=== PATIENT | male | born 1985 | race Caucasian/White ===

== ENCOUNTER 2016-11-21 17:10 | Inpatient (IN) | payer OTHER ==
[~2016-11-21] VITALS: Ht 172.7 cm; Wt 68.6 kg
--- NOTE | ~2016-11-21 | CO ---
ADMIT: 11/21/2016 RM/LOC: 530 [facility] MR#: [id number] [address] [address] ARSEN PETERSON [address] [place] [address] Consultation SEX: M AGE: 31 : 1985 DATE OF CONSULTATION: 11/22/2016 ATTENDING PHYSICIAN: Alexander Dougherty CONSULTING PHYSICIAN: Gage Mcmullen MD ADDENDUM: REASON FOR CONSULTATION: Anemia and hematemesis. HISTORY OF PRESENT ILLNESS: This patient is a 31-year-old male with a history of polysubstance and alcohol abuse who evidently had some hematemesis and some dark stools. He had a hemoglobin in like 7.3 range. We have been asked to see him for an EGD. He denies to me ever having any problems with this before. He has a history of depression. Denies any significant surgery. He denies taking significant aspirin, ibuprofen, or things of that nature. He does drink whiskey and alcohol daily and has been hitting it pretty hard lately, he said. He also has a history in the past of methamphetamines and marijuana. When I see him, he is in no acute distress. He is alert, hard time talking. He had a laceration on his tongue from whatever reason he cannot tell me why. He does not remember much about the binge he was on. This has been seen and evaluated by Dr. Monzon and should heal on its own, but it is swollen. His abdomen is soft. No real tenderness of significance. No mass or organomegaly. ASSESSMENT AND PLAN: EGD tomorrow by myself or one of my partners, depending on who can get to it first. This has been discussed with him. Gage Mcmullen MD/ netta JOB #: [id number] CC: Alexander Dougherty, Attending Physician Alexander Dougherty, Family Physician
--- NOTE | 2016-11-23 09:22 | ER ---
ADMIT: 11/21/2016 RM/LOC: 530 [facility] MR#: [id number] [address] [address] ARSEN PETERSON [address] [place] [address] Emergency Room Report SEX: M AGE: 31 : 1985 DATE: 11/21/2016 ADDENDUM: CHIEF COMPLAINT: Tongue swelling. HISTORY OF PRESENT ILLNESS: This is a 31-year-old alcoholic that cannot remember the last 2 or 3 days. He comes in with significant swelling to his tongue. When I examined it, it has a laceration that he said is possibly 2 to 3 days' old, also has bite coronel on the lateral sides of his tongue. It is unclear if this patient had a seizure or an injury that caused the damage to his tongue. COURSE IN THE EMERGENCY ROOM: A CT of his head was done, is negative, over- read by radiologist. EKG showed sinus tachycardia at a rate of 109. CBC was normal except for white count of 18.1, hemoglobin 8.3, and platelets of 205. Urine showed 4+ ketones, 3+ blood. Urine was positive for amphetamines and cannabinoids. CMP showed a sodium of 134. Potassium and chloride are normal. Bicarb of 16, BUN is 26, creatinine is 0.9, AST is 913, ALT is 220. His CK is 8051. His EtOH is 13. His prolactin is 6. I did speak with Dr. Dougherty regarding this patient for [facility]. He is going to admit for hydration and for alcohol detox. I also spoke with Dr. Monzon at 2000 hours, and he will consult on the patient. CLINICAL IMPRESSION: 1. Alcoholism. 2. Dehydration. 3. Methamphetamine and cannabinoid usage. 4. Tongue laceration. DISPOSITION: He is stable at admit. TYSON Davis / Jsoh Rivers MD / modjosep JOB #: [id number] CC: Alexander Dougherty MD, Attending Physician Alexander Dougherty MD, Family Physician
[2016-11-25] MEDS ORDERED: K-PHOS ORIGINA500 MG PO (09:32)
[2016-11-25] MEDS ORDERED: DIFLUCAN DPS200 MG PO (09:32)
[2016-11-25] MEDS ORDERED: PERIDEX15 ML PO (09:32)
[2016-11-25] MEDS ORDERED: POLYTRIM EYE DR10 ML OU (09:33)
[2016-11-25] MEDS ORDERED: ASCORBIC ACID500 MG PO (09:33)
[2016-11-25] MEDS ORDERED: KLOR-CON M2020 ME1 PO (09:33)
[2016-11-25] MEDS ORDERED: PRILOSEC DPS20 MG PO (09:33)
[2016-11-25] MEDS ORDERED: VITAMIN B1100 MG PO (09:33)
[2016-11-25] MEDS ORDERED: FEOSOL-DPS325 MG PO (09:33)
[2016-11-25] MEDS ORDERED: FOLVITE-DPS1 MG PO (09:34)
--- NOTE | 2016-11-26 12:56 | HP ---
ADMIT: 11/21/2016 RM/LOC: 530 [facility] MR#: [id number] [address] [address] ARSEN PETERSON [address] [place] [address] History and Physical SEX: M AGE: 31 : 1985 DATE OF SERVICE: 11/22/2016 CHIEF COMPLAINT: Swollen tongue, inability to swallow. HISTORY OF PRESENT ILLNESS: Arsen is a 31-year-old white male with a past medical history remarkable for heavy alcohol use and dependence as well as marijuana abuse, who presented to the [facility] Emergency Department last evening with a markedly swollen tongue and inability to swallow even liquids as a result. There, he was found to have a fairly significant laceration on his tongue and his speech was still slurred as a result of his tongue size, that it was difficult to really obtain any significant history. He is seen this morning. Since being admitted in the overnight period, his tongue remains very swollen and he is really unable to communicate with me due to the size of his tongue. He has been resistant to taking anything in orally, even liquids. He is really unable to provide much in the way of history. He does write a few words on a sheet of paper. He does note that he almost bit his tongue and half though he is not sure why. He has had a little bit of a cough. He says his teeth have been falling out. He has had some vomiting and nausea in the overnight period, but again, it is very difficult to obtain much in the way of a history on him today. PAST MEDICAL HISTORY: Again, most of this is obtained from old records, it is remarkable for: 1. Alcohol abuse and dependence. 2. History of alcoholic gastritis. 3. History of depression. 4. History of tobacco abuse. 5. Noncompliance. PAST SURGICAL HISTORY: None. ALLERGIES: NO KNOWN MEDICAL ALLERGIES. MEDICATIONS: None. SOCIAL HISTORY: Again, obtained primarily from old records. He does have a history of smoking. He admits to marijuana use. His urine drug screen on admission was positive for amphetamines, but he denies this. He admits to drinking 6-8 alcoholic beverages per day. He admits that his last alcoholic beverage was about four days ago. He states that he has been having seizures at home. FAMILY HISTORY: Noncontributory. REVIEW OF SYSTEMS: Again, a full review of systems was unable to be obtained due to the patient's inability to communicate with us today. What review of systems can be obtained is as per HPI. PHYSICAL EXAMINATION: VITAL SIGNS: Blood pressure is 143/87, pulse 104, ADMIT: 11/21/2016 RM/LOC: 530 [facility] MR#: [id number] [address] [address] KRISTEN ARSEN [address] [place] [address] History and Physical SEX: M AGE: 31 : 1985 respirations 18, temp 98.4, O2 saturation is 100% on room air. GENERAL: He is sitting upright in the bedside chair. Not in acute distress, but really unable to communicate. He really does not even try to vocalize. His tongue is markedly swollen, which is really what is limiting his communication. He does have very malodorous breath. HEENT: Normocephalic, atraumatic. Tongue is 3 to 4+ swollen. He does have what appears to be a transverse laceration midway back on the tongue from what I can see, but he is very hesitant to even bring the tongue out of his mouth. Dentition appear to be in poor repair. NECK: Supple. No lymphadenopathy. HEART: Regular rate and rhythm. No murmurs, gallops, or rubs. LUNGS: Coarse breath sounds throughout bilaterally. LABORATORY AND X-RAY DATA: UA on admission remarkable for 3+ blood on the dip, minimal blood if any on the micro, negative for nitrites and leukocyte esterase but he is 4+ positive for ketones. Urine drug screen was positive for amphetamines and for cannabinoids. CMP through the ER showed a mildly depressed sodium of 143, a bicarb of 16. AST was 913, ALT 220. CK was 8051. Blood alcohol level was 13. Prolactin was 6. Head CT was read out as normal, and no evidence of any sinusitis on the head CT. White count was 18.1, hemoglobin 8.3, platelets of 205, he had 28% bands. INR was 1. Repeat CBC this morning shows his hemoglobin down at 7.3, white count of 12.1, and a platelet of 206. His anemia is a microcytic hypochromic anemia. BMP this morning shows a potassium of 3.1, his CO2 has improved to 19 with hydration. Phos is depressed at 1.3. Mag is normal at 2.3. CK, AST, ALT, alkaline phosphatase are all pending at this time. EKG done through the ER shows sinus tachycardia. No hyperacute ST or T-wave changes noted. ASSESSMENT AND PLAN: 1. Tongue laceration and swelling, resulting in inability to take in orals. 2. Dehydration. 3. ETOH dependence and abuse. 4. Marijuana abuse. 5. Rhabdomyolysis. 6. Microcytic hypochromic anemia. 7. Hypokalemia. 8. Hypophosphatemia. PLAN: Plan since admission has been to hydrate Arsen. He has been receiving normal saline at 120 mL an hour. We started him on IV thiamine and folic ADMIT: 11/21/2016 RM/LOC: 530 [facility] MR#: [id number] [address] [address] ARSEN PETERSON S [address] [place] [address] History and Physical SEX: M AGE: 31 : 1985 acid, and have started him on an alcohol withdrawal protocol with Valium for that. I suspect that he does have alcoholic gastritis and/or peptic ulcer disease, he may need an upper GI endoscopy. I have ordered iron studies including a ferritin, TIBC, and serum iron to confirm my suspicions. We will replace his potassium and his phosphate as best we can here this morning. Repeat a CK and a set of liver enzymes this morning to make sure those are trending down. With his cough and coarse breath sounds, we will get a chest x- ray this morning to ensure he does not have a pneumonia that has been missed. I have started him on IV Protonix and Carafate. We will start him on Zofran for nausea. With his anemia, we will type cross and hold 2 units packed red cells. I have asked Dr. Monzon with Ear, Nose, and Throat consult on the tongue laceration. Alexander Dougherty MD/ netta JOB #: [id number] CC: Alexander Dougherty, Attending Physician Alexander Dougherty, Family Physician
--- NOTE | 2016-11-26 12:56 | DS ---
ADMIT: 11/21/2016 RM/LOC: 530 [facility] MR#: [id number] [address] [address] ARSEN PETERSON [address] [place] [address] Discharge Summary SEX: M AGE: 31 : 1985 ADMISSION DATE: 11/21/2016 DISCHARGE DATE: 11/24/2016 ADMITTING DIAGNOSES: 1. Tongue laceration and swelling with inability to take in orals. 2. Dehydration. 3. Ethanol dependence and abuse. 4. Marijuana abuse. 5. Rhabdomyolysis. 6. Microcytic hypochromic anemia. 7. Hypokalemia. 8. Hypophosphatemia. DISCHARGE DIAGNOSES: 1. Traumatic tongue laceration and poor oral cares secondary to chronic alcohol abuse and dependence as well as oral trauma. 2. Dehydration, resolved. 3. Ethanol dependence and abuse. 4. Alcoholic cirrhosis. 5. Polysubstance abuse including cannabis abuse and positive drug screen for amphetamines, though patient denies the latter. 6. Rhabdomyolysis CKs (creatine kinases) trending down. 7. Hypokalemia, nutritional deficiency from his chronic alcohol abuse. 8. Hypophosphatemia. Again, nutritional deficiency from his chronic alcohol abuse. 9. Candidal esophagitis. 10.Iron deficiency anemia, likely secondary to his tongue trauma. 11.Bilateral conjunctivitis. 12.Tobacco abuse. CONSULTATIONS: 1. Carlos Monzon MD with ENT consulted on 11/21/2016 for his tongue laceration. 2. Gage Mcmullen MD with General Surgery consulted on 11/22/2016 for microcytic hypochromic anemia. PROCEDURES: Upper gastrointestinal endoscopy with Nasir Nuñez MD, General Surgery performed on 11/23/2016 showing findings consistent with candidal esophagitis but no evidence of esophageal varices, peptic ulcer disease or any evidence a gastritis. HISTORY AND PHYSICAL EXAM: Arsen is a 31-year-old, white with a past medical history remarkable for heavy alcohol use and dependence as well as marijuana abuse who presented to [facility] Emergency Department in the evening of 11/21/2016 with a markedly swollen tongue, tongue laceration and inability to swallow even liquids as a result of this laceration. Due to his tongue size, it was difficult to obtain any history from him at the time of my initial visit. He was found to be dehydrated, had elevated liver enzymes and elevated CK. He was unable to provide any significant history as ADMIT: 11/21/2016 RM/LOC: 530 [facility] MR#: [id number] [address] [address] ARSEN PETERSON [address] [place] [address] Discharge Summary SEX: M AGE: 31 : 1985 to how his tongue came to be in this condition. He did report that his teeth were falling out and he had been having poor oral cares. His vital signs were stable. He was afebrile, though he was found to have a microcytic hypochromic anemia with a hemoglobin of 8.3. Urine drug screen was positive for cannabinoids and amphetamines, though he denied using amphetamines. He was also found to have a hypokalemia with a potassium of 3.12. He was admitted to the hospital for IV hydration, evaluation of his tongue laceration, correction of his electrolytes, and his anemia. HOSPITAL COURSE: Arsen's hospital course was overall unremarkable. There were no significant events throughout his entire hospital stay. He was transfused 1 unit of packed red cells when his hemoglobin came down into the 6 range. He had no active bleeding, and I suspect this was probably dilutional to giving him quite a bit of IV fluid as a result of this rhabdomyolysis. Again, he did receive 1 unit of packed red cells and his hemoglobin responded nicely up into the high 7s. He otherwise remained asymptomatic from his anemia. Dr. Monzon with ENT was consulted for his tongue laceration. Surgical repair was not recommended. Good oral cares and Peridex mouthwash were recommended and were initiated here in the hospital. Arsen did have fevers on 11/22/2016 and into 11/23/2016. Further evaluation of this included a negative lactic acid, procalcitonin, chest x-ray and urinalysis. I think this was probably secondary to atelectasis. His lung sounds were rather course at the time. We managed this with DuoNebs and incentive spirometry and his fevers resolved. Arsen was found to have low potassium and low phosphate throughout his hospital stay. These were replaced orally and intravenously and were thought secondary to his chronic alcohol abuse and just simply nutritionally deficient, again from his chronic alcohol abuse and dependence. He was started on thiamine and folic acid as well as a multivitamin on admission, and these were carried out through his day of discharge. Dr. Mcmullen with General Surgery was consulted for his microcytic hypochromic anemia. Iron studies were suggestive of iron deficiency and blood loss. Upper GI endoscopy was performed by Dr. Mcmullen's partner, Dr. Nuñez, on 11/23/2016 with findings consistent of his candidal esophagitis. No evidence of bleed, peptic ulcer disease, gastritis or esophageal varices. He was started on fluconazole. His iron deficiency anemia was thought to be secondary to nutritional deficiencies as well as his tongue laceration. No further GI workup was obtained at the time of his discharge. Arsen did have rather mucoid discharge from his eyes noted on 11/23/2016, and he was started on Polytrim eye drops for that during his hospital stay. Arsen was evaluated by Social Work, Physical Therapy, Occupational Therapy, and a consultation was obtained by the [facility] here in [place]. He declined any inpatient drug and alcohol treatment stating he did not think he needed it. I made a strong recommendation to Arsen that many, if not all of the findings we encountered during his entire hospital stay were as a result of his chronic alcohol abuse and dependence and advised ADMIT: 11/21/2016 RM/LOC: 530 [facility] MR#: [id number] [address] [address] ARSEN PETERSON S [address] [place] [address] Discharge Summary SEX: M AGE: 31 : 1985 him strongly that he needed to quit drinking and that failure to do so would very likely result in an early . He indicated an understanding. Ultimately by the morning of 11/24/2016 he was able to take in oral pills as well as liquids, maintain his own hydration status. He was actually able to eat and tolerate rather soft and bland diet. It was felt that his remaining nutritional deficiencies could be managed as an outpatient with oral replacement therapy and a decision was made to discharge him to home. Discharge condition is poor. I have strong doubts as to whether Arsen is going to take any of the medicines that I have provided him or quit drinking. DISCHARGE INSTRUCTIONS: Discharge medications will include: 1. Ferrous sulfate 325 mg p.o. daily. 2. Vitamin C 500 mg p.o. daily. 3. Omeprazole 20 mg b.i.d. 4. Peridex mouthwash 15 mL t.i.d. 5. K-Phos Neutral 500 mg b.i.d. 6. Potassium chloride 20 mEq p.o. daily. 7. Thiamine 100 mg p.o. daily. 8. Folic acid 1 mg p.o. daily. 9. Fluconazole 400 mg p.o. today then 200 mg p.o. daily for 14 days. 10.Polytrim eyedrops one drop in each eye for six days. Dr. Monzon with ENT has recommended a followup in 10-14 days. We will confirm with General Surgery their recommendation for followup. I have asked that he follow up with me in clinic early next week for a CMP, mag phos, CBC and CK. Alexander Dougherty MD/ ja JOB #: [id number] CC: Alexander Dougherty MD, Attending Physician Alexander Dougherty MD, Family Physician
--- NOTE | 2016-12-08 12:25 | CO ---
ADMIT: 11/21/2016 RM/LOC: 530 [facility] MR#: [id number] [address] [address] ARSEN PETERSON [address] [place] [address] Consultation SEX: M AGE: 31 : 1985 DATE OF CONSULTATION: 11/22/2016 ATTENDING PHYSICIAN: Alexander Dougherty CONSULTING PHYSICIAN: Gage Mcmullen MD REASON FOR CONSULTATION: Anemia, question upper gastrointestinal blood loss. HISTORY OF PRESENT ILLNESS: Arsen is a 31-year-old male, who arrived to the Emergency Department yesterday for concerns of hematemesis and tongue laceration and swelling. Due to his symptoms, he has a very difficult time swallowing liquids and communicating verbally. Apparently, the patient's which most of the history I obtained from his aunt was that a couple days ago he had about three times hematemesis and a couple times dark stools. While he has been in the hospital, his stools have also been loose, but denies any diarrhea. The patient cannot recall exactly what started these symptoms or what exactly happened to him at this time. He does have a history of alcohol abuse, and polysubstance abuse. He denies any abdominal pain, diarrhea, constipation, bright red blood per rectum, shortness of breath, or weakness. He takes ibuprofen [id number] p.r.n., but he does not recall taking any recently. He denies taking any further blood thinning medications. PAST MEDICAL HISTORY: Significant for depression. PAST SURGICAL HISTORY: No prior surgeries. ALLERGIES: NO KNOWN DRUG ALLERGIES. MEDICATIONS: Occasional ibuprofen. FAMILY HISTORY: Noncontributory. SOCIAL HISTORY: The patient screens positive for alcohol abuse, he drinks whiskey about 6 to 8 drinks per day. He has history of polysubstance abuse including methamphetamines and marijuana. He denies any tobacco use. REVIEW OF SYSTEMS: CONSTITUTIONAL: The patient denies any fever, chills, or night sweats. The rest of a comprehensive 10-point review of systems was performed and all other systems are negative. PHYSICAL EXAMINATION: GENERAL: The patient is in no acute distress. He is alert oriented. HEENT: Head is normocephalic and atraumatic. EOMS are intact. Conjunctivae free of icterus, erythema, or pallor. Pinnae, free of deformities. Nose, midline. Tongue with old laceration about mid tongue and medial. NECK: Supple. No tracheal deviation. SKIN: Negative for jaundice, clubbing, edema, pallor, or cyanosis. LUNGS: Normal respiratory effort. HEART: Distal pulses intact. Regular rate and rhythm. ADMIT: 11/21/2016 RM/LOC: 530 [facility] MR#: [id number] [address] [place] [address] [place] [address] Consultation SEX: M AGE: 31 : 1985 ABDOMEN: Soft, nondistended, some mild tenderness in the left lower quadrant. LABORATORY DATA: Hemoglobin 7.3. ASSESSMENT: 1. Anemia. 2. Hematemesis. 3. Melanotic stools. PLAN: Plan is to have the patient undergo EGD tomorrow performed by Dr. Mcmullen. He has clears today, so we will keep n.p.o. at midnight, and get him get him consented. I discussed the risks, alternatives, benefits, and complications of EGD with the patient to which he is agreement of plan. I had all his questions answered and he would like to proceed. Thanks for the consultation of this patient. TYSON Stanley / Gage Mcmullen MD / netta JOB #: [id number] CC: Alexander Dougherty, Attending Physician Alexander Dougherty, Family Physician
--- NOTE | 2016-12-10 08:53 | OR ---
ADMIT: 11/21/2016 RM/LOC: 530 [facility] MR#: [id number] [address] [address] ARSEN PETERSON [address] [place] [address] Operative/Delivery Room Report SEX: M AGE: 31 : 1985 SURGERY DATE: 11/23/2016 SURGEON: Nasir Nuñez MD PREPROCEDURE DIAGNOSES: 1. Anemia. 2. Hematemesis. POSTPROCEDURE DIAGNOSES: 1. Possible fungal esophagitis. 2. Traumatic tongue injury. 3. No obvious active bleeding source. PROCEDURE: EGD with esophageal biopsies. INDICATIONS: The patient is a 31-year-old with alcohol and drug abuse issues who has had apparently some type of tongue biting injury, evaluated by Dr. Monzon. He had hematemesis, found to be anemic who presents for upper endoscopy evaluation. FINDINGS: The patient was taken to the endoscopy suite. IV sedation was given. He was placed in left lateral decubitus position. A bite-block was placed in the patient's mouth. There was a terribly bad halitosis. We were able to introduce the gastroscope by the 2 obvious large cratered ulcerogenic areas on his tongue reportedly from a bite injury into the oropharynx, into the esophagus, into the stomach, through the pylorus to the duodenum. The duodenal bulb, second and third portion of the duodenum appeared normal. The stomach also appeared normal with no bleeding source. On retroflexion view, there did not appear to be a hiatal hernia. On exam of the GE junction, there was clearly evidence of distal esophagitis, possibly a fungal esophagitis as there appeared to be some white plaquing. I did do several distal esophageal biopsies to rule out fungal esophagitis, but we will start fluconazole empirically. Remainder of the mid and upper esophagus appeared normal. There was no active bleeding. There was no evidence of old or new blood throughout the endoscopy. The gastroscope was removed. The patient tolerated the procedure without difficulty and transferred to the recovery room in good condition. Nasir Nuñez MD/ netta JOB #: [id number] CC: Alexander Dougherty, Attending Physician Alexander Dougherty, Family Physician Alexander Dougherty MD
== END 2016-11-24 13:14 | disposition home or self-care (01) | DRG 158 ==
LOC: ER 17:10 → 5MS 20:10
PROVIDERS: ADMIT Family Medicine
PROC: HZ2ZZZZ Detoxification Services for Substance Abuse Treatment (ICD-10-PCS; principal; 2016-11-22)
PROC: 30233N1 Transfusion of Nonautologous Red Blood Cells into Peripheral Vein, Percutaneous Approach (ICD-10-PCS; 2016-11-23)
PROC: 0DB38ZX Excision of Lower Esophagus, Via Natural or Artificial Opening Endoscopic, Diagnostic (ICD-10-PCS; 2016-11-23)
DX: S01.512A Laceration without foreign body of oral cavity, initial encounter (principal); M62.82 Rhabdomyolysis; K92.0 Hematemesis; R13.10 Dysphagia, unspecified; E83.39 Other disorders of phosphorus metabolism; B37.81 Candidal esophagitis; K92.1 Melena; E86.0 Dehydration; F10.20 Alcohol dependence, uncomplicated; K70.30 Alcoholic cirrhosis of liver without ascites; F12.90 Cannabis use, unspecified, uncomplicated; F15.90 Other stimulant use, unspecified, uncomplicated; E87.6 Hypokalemia; H10.9 Unspecified conjunctivitis; F32.9 Major depressive disorder, single episode, unspecified; D50.9 Iron deficiency anemia, unspecified; X58.XXXA Exposure to other specified factors, initial encounter; R00.0 Tachycardia, unspecified; Y90.0 Blood alcohol level of less than 20 mg/100 ml; F17.200 Nicotine dependence, unspecified, uncomplicated; R50.9 Fever, unspecified

== ENCOUNTER 2016-12-24 17:51 | Emergency (ER) | payer OTHER ==
[~2016-12-24 17:51] MED LIST: ASCORBIC ACID500 MG PO; DIFLUCAN DPS200 MG PO; FEOSOL-DPS325 MG PO; FOLVITE-DPS1 MG PO; K-PHOS ORIGINA500 MG PO; KLOR-CON M2020 ME1 PO; PERIDEX15 ML PO; POLYTRIM EYE DR10 ML OU; PRILOSEC DPS20 MG PO; VITAMIN B1100 MG PO
--- NOTE | 2017-01-01 10:17 | ER ---
ADMIT: 12/24/2016 RM/LOC: ER [facility] MR#: [id number] [address] [address] ARSEN PETERSON [address] [place] [address] Emergency Room Report SEX: M AGE: 31 : 1985 DATE: 12/24/2016 ADDENDUM: CHIEF COMPLAINT: Right-sided chest pain. HISTORY OF PRESENT ILLNESS: This is a 31-year-old who developed this chest pain within the last 12 hours. He cannot remember a specific injury, but he drinks heavily daily. He was just recently hospitalized for heavy alcohol drinking and tongue laceration and unable to drink or eat on his own. He was discharged on 11/24 just a month ago. COURSE IN THE EMERGENCY ROOM: CMP, ETOH, troponin, CBC, chest x-ray, EKG were done. Chest x-ray was negative for any acute findings over-read by Dr. Montiel. EKG showed rate at 88, no ST elevation or depression. Troponin is normal. ETOH is 151. CMP is normal except for chloride of 92, his bicarb 21, AST is 313, ALT is 113. CBC is normal except for hemoglobin of 9.6 and hematocrit 33.3. I highly encouraged the patient that he needs to quit drinking. He says he is not ready to quit. I did try to feed him and give him something to drink. He did vomit up here in the emergency room. I gave him 3 options to be admitted, but the reason would be to help him detox or go to [facility] to also help him detox or be discharged home. He said he wants to just try to tough it out and try to go home. I still suggested that he go to detox to help him quit drinking that he is feeling so horrible because he is going into detox at this time. CLINICAL IMPRESSION: 1. Alcoholism. 2. Chest wall pain that is reproducible. 3. Chronic anemia. DISPOSITION: He is stable at discharge and again encouraged him to go to [facility] for detox. TYSON Davis / Chidi May MD / netta JOB #: [id number] CC: Juliano Brown MD, Attending Physician Alexander Dougherty MD, Family Physician
== END 2016-12-24 20:51 | disposition home or self-care (01) ==
LOC: ER 17:51
DX: R07.89 Other chest pain (principal); F10.20 Alcohol dependence, uncomplicated; D64.9 Anemia, unspecified; F17.210 Nicotine dependence, cigarettes, uncomplicated

== ENCOUNTER 2016-12-25 07:53 | Inpatient (IN) | payer OTHER | END 2016-12-26 14:22 | disposition left against medical advice (07) | DRG 389 | DX: K56.60 Unspecified intestinal obstruction (principal); E87.3 Alkalosis; N17.9 Acute kidney failure, unspecified; E87.1 Hypo-osmolality and hyponatremia; F10.20 Alcohol dependence, uncomplicated; K70.30 Alcoholic cirrhosis of liver without ascites; D50.9 Iron deficiency anemia, unspecified; R11.2 Nausea with vomiting, unspecified; K20.9 Esophagitis, unspecified; K29.70 Gastritis, unspecified, without bleeding; E87.6 Hypokalemia; K70.10 Alcoholic hepatitis without ascites; F19.10 Other psychoactive substance abuse, uncomplicated; E86.0 Dehydration; F17.210 Nicotine dependence, cigarettes, uncomplicated; F12.10 Cannabis abuse, uncomplicated; F32.9 Major depressive disorder, single episode, unspecified; E83.42 Hypomagnesemia; Z91.19 Patient's noncompliance with other medical treatment and regimen ==

== ENCOUNTER 2017-01-06 14:52 | Observation (INO) | payer OTHER ==
[~2017-01-06] VITALS: Ht 172.7 cm; Wt 67.8 kg
--- NOTE | 2017-01-09 00:34 | ER ---
ADMIT: 01/06/2017 RM/LOC: 414 [facility] MR#: [id number] [address] [address] ARSEN PETERSON [address] [place] [address] Emergency Room Report SEX: M AGE: 31 : 1985 DATE: 01/06/2017 TIME: 1452 hours. Please refer to my T-sheet for complete H and P. HISTORY OF PRESENT ILLNESS: Briefly, the patient is a 31-year-old, who comes in with seizure. He was working at work. He has a known history of polysubstance abuse, alcohol abuse. He said he did not drink anything last night. Had a witnessed seizure shaking all over. He did bite his tongue a little bit and hit his head when he fell. He came in by ambulance. PHYSICAL EXAMINATION: VITAL SIGNS: Blood pressure 120/95, pulse 96, respirations 16, temp 97.9, saturating 98%. GENERAL: He is slightly slow to respond. HEENT: He has a laceration 3 cm on the top of the scalp, does not need to be stapled. Otherwise, atraumatic and normocephalic. Pupils equal, round, and reactive to light. Extraocular muscles intact. TMs clear. Throat clear. NECK: Soft and supple. No meningismus. LUNGS: Clear. SKIN: No rash. HEART: Regular. ABDOMEN: Soft. EMERGENCY DEPARTMENT COURSE: CT of his head showed no acute intracranial abnormality. CBC was normal except white count 14.5, hemoglobin 8.8, platelets 421. Chemistry is normal except sodium 134, potassium 2.7, BUN 44, glucose 151, AST was 136, ALT 85. His alcohol level was 0. Urine and urine tox are pending. I gave him a liter of normal saline bolus, Zofran 4 IV, Ativan 1 mg IV, Protonix 40 IV, potassium chloride 40 mEq p.o., potassium ADMIT: 01/06/2017 RM/LOC: 414 [facility] MR#: [id number] [address] [address] ARSEN PETERSON [address] [place] [address] Emergency Room Report SEX: M AGE: 31 : 1985 chloride 10 mEq IV, thiamine 100 mg IM. We are going to hang a second liter of normal saline. Cleansed his laceration. I talked to Dr. Cast, will admit to the hospital. ASSESSMENT: 1. ETOH withdrawal seizure. 2. Hypokalemia. 3. Anemia. 4. Scalp laceration. 5. Polysubstance abuse history. PLAN: Admit to the hospital. Juliano Brown MD/ netta JOB #: [id number] CC: Vern Cast MD, Attending Physician Vern Cast MD, Family Physician
--- NOTE | 2017-01-22 08:26 | HP ---
ADMIT: 01/06/2017 RM/LOC: 414 [facility] MR#: [id number] [address] [address] ARSEN PETERSON [address] [place] [address] History and Physical SEX: M AGE: 31 : 1985 DATE OF SERVICE: CHIEF COMPLAINT: Seizure and fall. HISTORY OF PRESENT ILLNESS: Arsen is a very pleasant, 31-year-old male, who had been in the Emergency Department and hospital multiple times over the last month for alcoholism and anemia, who was brought to the Emergency Department today with complaints of seizure and hitting his head. The patient says his last drink was yesterday. He had a seizure, hit his head, brought to the Emergency Department. CT scan showed left parietal scalp. The patient has had ongoing anemia, multiple scopes done over the last few months and hemoglobin was 8.8. We were asked to admit for alcohol withdrawal protocol and monitoring. During his last admission, the patient was admitted with intractable abdominal pain and vomiting. The patient did have scope showing severe esophagitis with moderate fundus, gastritis, and mild antral gastritis. No active bleeding. Did have biopsies done showing chronic gastritis, showing an acute esophagitis with ulcer. Ultimately, the patient was discharged on December 26. The patient told ER that he follows with Dr. Alexander Dougherty, but it appears that Dr. Dougherty has saw him as a [facility] patient. He has followed up in his clinic, but apparently not regularly. We have been asked to admit for the above through [facility]. PAST MEDICAL HISTORY: Includes: 1. Alcoholic cirrhosis. 2. Alcohol abuse and dependence. 3. Polysubstance abuse. 4. Cannabis abuse. 5. Iron deficiency anemia, chronic. 6. Taylor esophagitis. 7. Chronic tobacco abuse. 8. History of alcoholic gastritis. 9. History of depression. 10.Chronic noncompliance with medical recommendations. 11.Esophageal ulcer. 12.Iron deficiency anemia. 13.Depression, untreated. PAST SURGICAL HISTORY: Upper endoscopy with Dr. Nuñez on 11/23, showing candidal esophagitis. On December 26, repeat EGD showing severe esophagitis with early esophageal ulcer and moderate fundus gastritis and mild antral gastritis. ALLERGIES: NO KNOWN DRUG ALLERGIES. MEDICATIONS: None. SOCIAL HISTORY: The patient is a poor historian. Admits to drinking and ADMIT: 01/06/2017 RM/LOC: 414 [facility] MR#: [id number] [address] [address] [place] [address] History and Physical SEX: M AGE: 31 : 1985 smoking marijuana use. Drinks extensive amounts of alcohol, but does not feel that he is an alcoholic. Last drink was yesterday. The patient works at [employer]. FAMILY HISTORY: Noncontributory. REVIEW OF SYSTEMS: A 10-point review of systems obtained per HPI otherwise negative. PHYSICAL EXAMINATION: VITAL SIGNS: Blood pressure 126/70, pulse 80, respirations 16, temperature 99.9, 100% on room air. GENERAL: Alert and oriented x3. Does not appear to be in acute distress. HEENT: Pupils are equal and reactive. Extraocular muscles are intact. Throat is clear. Trachea is midline. Small hematoma, left parietal region on the scalp. HEART: Regular rate and rhythm. No murmurs, rubs, or gallops. LUNGS: Clear to auscultation bilaterally without any wheezes or crackles. ABDOMEN: Soft, nontender, and nondistended. No organomegaly. EXTREMITIES: Signs of significant edema. NEUROLOGIC: Cranial nerves II through XII are grossly intact. No focal deficits. LABORATORY DATA: Hemoglobin 8.8. On discharge from last admission on December 26 was 7.7. White count elevated at 14.5. Potassium low 2.7. Creatinine 1.0. AST elevated at 136, ALT elevated at 85. Serum alcohol level was negative. IMAGING: Head CT showed left parietal scalp hematoma. ASSESSMENT AND PLAN: A 31-year-old with: 1. Withdrawal seizure. 2. Left parietal scalp hematoma. 3. Alcoholism. 4. Polysubstance of abuse. 5. Chronic gastritis. 6. Chronic esophagitis with history of candidal esophagitis and mild esophageal ulcer. 7. Chronic iron-deficiency anemia from chronic ongoing blood losses. 8. Transaminitis with elevated liver function tests, chronic. 9. Hypokalemia. 10.Hypomagnesemia. 11.Leukocytosis with elevated white blood count. 12.Fever, possibly secondary to seizure versus pneumonia with white count 2. 13.Noncompliance. 14.Nicotine dependence. PLAN: We will admit the patient. Alcohol withdrawal protocol. Fluid resuscitation. Watch blood counts closely. We will start him back on ADMIT: 01/06/2017 RM/LOC: 414 [facility] MR#: [id number] [address] [place] [id number] ARSEN PETERSON [address] [place] [address] History and Physical SEX: M AGE: 31 : 1985 Carafate and PPI. Check for H pylori. Biopsies were negative. Treat him for history of Taylor esophagitis. Long discussion with the patient in regard to his ongoing medical problems. Discussed with him his need for help. He seems to have lack of insight at this point with his trouble with alcohol. The patient did state that he wants to live and it does concern him that he could potentially have an acute gastrointestinal bleed or esophageal perforation secondary to his lifestyle choices, which potentially and ultimately end his life. He does not want that and seems to be willing to discuss other outpatient treatment options. Greater than 35 minutes spent in overall patient care. Greater than 25 minutes of that was nexa-kh-ymnm interaction. Vern Cast MD/ netta JOB #: [id number] CC: Vern Cast, Attending Physician Vern Cast, Family Physician
== END 2017-01-08 09:50 | disposition left against medical advice (07) ==
LOC: ER 14:52 → 4PCU 16:55
PROVIDERS: ADMIT Family Medicine
DX: G40.89 Other seizures (principal); S00.03XA Contusion of scalp, initial encounter; F10.20 Alcohol dependence, uncomplicated; K29.50 Unspecified chronic gastritis without bleeding; E87.6 Hypokalemia; E83.42 Hypomagnesemia; D72.829 Elevated white blood cell count, unspecified; D50.8 Other iron deficiency anemias; F32.9 Major depressive disorder, single episode, unspecified; B37.81 Candidal esophagitis; F19.20 Other psychoactive substance dependence, uncomplicated; R74.0 Nonspecific elevation of levels of transaminase and lactic acid dehydrogenase [LDH]; X58.XXXA Exposure to other specified factors, initial encounter

== ENCOUNTER 2017-01-21 16:59 | Inpatient (IN) | payer OTHER | END 2017-01-24 09:00 | disposition left against medical advice (07) | DRG 988 | DX: F10.239 Alcohol dependence with withdrawal, unspecified (principal); G40.89 Other seizures; K70.30 Alcoholic cirrhosis of liver without ascites; K70.10 Alcoholic hepatitis without ascites; D50.9 Iron deficiency anemia, unspecified; F13.10 Sedative, hypnotic or anxiolytic abuse, uncomplicated; F17.200 Nicotine dependence, unspecified, uncomplicated; F12.10 Cannabis abuse, uncomplicated; S01.21XA Laceration without foreign body of nose, initial encounter; E87.6 Hypokalemia; F32.9 Major depressive disorder, single episode, unspecified; S00.81XA Abrasion of other part of head, initial encounter; Z91.19 Patient's noncompliance with other medical treatment and regimen; W19.XXXA Unspecified fall, initial encounter ==

== ENCOUNTER 2017-02-23 12:28 | Emergency (ER) | payer SELFPAY ==
--- NOTE | 2017-02-24 19:19 | HP ---
ADMIT: 02/23/2017 RM/LOC: [facility] MR#: [id number] [address] [address] ARSEN PETERSON [address] [place] [address] History and Physical SEX: M AGE: 31 : 1985 DATE OF SERVICE: 02/23/2017 ADDENDUM: A 31-year-old, white male coming in after having a seizure in the grocery store. HISTORY OF PRESENT ILLNESS: A 31-year-old having seizure in the grocery store. He was here on 01/21/2017 for approximately the same thing, which alcohol withdrawal seizure with subsequent fall. He had no trauma or complain of anything at this time. Brought in by ambulance. He has a history of alcohol and polysubstance abuse. Essentially, as I came into see him, I asked him if he wanted us to do anything treatment or get him into [facility] for alcohol detox he refused all that. He had no obvious trauma at this time. PAST MEDICAL HISTORY: Significant disease; cirrhosis secondary to alcohol, alcohol abuse, polysubstance abuse including cannabis and benzodiazepine, chronic anemia, history of esophageal gastritis, tobacco abuse, history of depression, history of noncompliance, history of hypokalemia, history of alcohol-withdrawal seizures. MEDICATION: Not taking any. ALLERGIES: NONE. FAMILY SOCIAL HISTORY: Admits to regular drinking and marijuana. Does not ever really give any straight answers. REVIEW OF SYSTEMS: CONSTITUTIONAL: Denies any. GI: He has had endoscopy in the past, which showed esophagitis and gastritis. Rest of review of systems are unchanged or he will not say. PHYSICAL EXAMINATION: GENERAL: Does not appear to be acutely distressed. He is not confused or postictal at this time. He is alert and can answer questions. CARDIOVASCULAR: He is not in any respiratory distress. His lung sounds are clear. ADMIT: 02/23/2017 RM/LOC: ER [facility] MR#: [id number] [address] [address] ARSEN PETERSON [address] [place] [address] History and Physical SEX: M AGE: 31 : 1985 HEART: Regular rate and rhythm. ABDOMEN: Nontender. DIAGNOSES: 1. Alcohol withdrawal seizure. 2. Noncompliance. TREATMENT: Essentially, the patient did not want any lab work, any treatment. He left and signed out against medical advice. I did advise that if he changes his mind, we will be glad to see him. CONDITION ON DISCHARGE: Fair. Josh Rivers MD/ netta JOB #: [id number] CC: Josh Rivers, Attending Physician Gunner Miles, Family Physician
== END 2017-02-23 12:40 | disposition left against medical advice (07) ==
LOC: ER 12:28
DX: F10.239 Alcohol dependence with withdrawal, unspecified (principal); G40.909 Epilepsy, unspecified, not intractable, without status epilepticus; F17.200 Nicotine dependence, unspecified, uncomplicated; Z91.19 Patient's noncompliance with other medical treatment and regimen